=== PATIENT | female | born 1960 | race Caucasian/White ===

== ENCOUNTER 2021-04-30 11:00 | Day surgery (SDC) | payer BC, OTHER ==
[2021-04-28 15:43] VITALS: BMI 24.9
[2021-04-30] MEDS ORDERED: PROPOFOL 20 ML ONE ×2 (12:40)
[2021-04-30] MEDS ORDERED: LIDOCAINE HCL/PF 2% SDV 5ML VIAL ONE (12:40)
[2021-04-30 13:26] VITALS: PULSE 63; TEMP 97.8
[2021-04-30 15:12] VITALS: BP 110/71
== END 2021-04-30 14:10 | disposition home or self-care (01) ==
LOC: FASU-ENDO 11:00
PROVIDERS: ATTEND Internal Medicine Gastroenterology
PROC: 0DBN8ZX Excision of Sigmoid Colon, Via Natural or Artificial Opening Endoscopic, Diagnostic (ICD-10-PCS; principal; 2021-04-30 12:51)
DX: Z12.11 Encounter for screening for malignant neoplasm of colon (principal); Z80.0 Family history of malignant neoplasm of digestive organs; K64.1 Second degree hemorrhoids

== ENCOUNTER 2021-06-04 10:30 | Day surgery (SDC) | payer BC ==
[2021-05-28 16:42] VITALS: BMI 24.9
[2021-06-04] MEDS ORDERED: LIDOCAINE HCL/PF 2% SDV 5ML VIAL ONE (10:40)
[2021-06-04] MEDS ORDERED: PROPOFOL 20 ML ONE ×2 (10:41)
[2021-06-04] MEDS ORDERED: GLYCOPYRROLATE 0.2 MG/1 ML VIAL ONE (10:43)
[2021-06-04 12:11] VITALS: TEMP 97.8
[2021-06-04 12:53] VITALS: BP 138/74; PULSE 71
== END 2021-06-04 12:45 | disposition home or self-care (01) ==
LOC: FASU-ENDO 10:30
PROVIDERS: ATTEND Internal Medicine Gastroenterology
PROC: 0DB68ZX Excision of Stomach, Via Natural or Artificial Opening Endoscopic, Diagnostic (ICD-10-PCS; 2021-06-04)
PROC: 0DB48ZX Excision of Esophagogastric Junction, Via Natural or Artificial Opening Endoscopic, Diagnostic (ICD-10-PCS; 2021-06-04)
PROC: 0DB98ZX Excision of Duodenum, Via Natural or Artificial Opening Endoscopic, Diagnostic (ICD-10-PCS; principal; 2021-06-04 11:48)
DX: K29.50 Unspecified chronic gastritis without bleeding (principal); R10.13 Epigastric pain

== ENCOUNTER 2024-03-08 09:24 | Day surgery (SDC) | payer BC ==
[2024-02-29 11:46] VITALS: BMI 22.1
[2024-03-08 09:47] VITALS: RESP 18
[2024-03-08 11:37] VITALS: TEMP 97.7
[2024-03-08 12:02] VITALS: BP 108/57; PULSE 66
== END 2024-03-08 12:00 | disposition home or self-care (01) ==
LOC: FASU-ENDO 09:24
PROVIDERS: ATTEND Internal Medicine Gastroenterology
PROC: 0DBN8ZX Excision of Sigmoid Colon, Via Natural or Artificial Opening Endoscopic, Diagnostic (ICD-10-PCS; 2024-03-08)
PROC: 0DBP8ZX Excision of Rectum, Via Natural or Artificial Opening Endoscopic, Diagnostic (ICD-10-PCS; 2024-03-08)
PROC: 0DBM8ZX Excision of Descending Colon, Via Natural or Artificial Opening Endoscopic, Diagnostic (ICD-10-PCS; principal; 2024-03-08 11:06)
DX: Z12.11 Encounter for screening for malignant neoplasm of colon (principal); D12.4 Benign neoplasm of descending colon; K63.5 Polyp of colon; K57.30 Diverticulosis of large intestine without perforation or abscess without bleeding; K64.1 Second degree hemorrhoids; Z86.010 Personal history of colon polyps
CPT/HCPCS: 88305-TC

== ENCOUNTER 2024-04-19 10:52 | Day surgery (SDC) | payer BC ==
[2024-04-10 15:29] VITALS: BMI 22.4
[2024-04-19 11:16] VITALS: RESP 18
[2024-04-19 12:18] VITALS: TEMP 97
[2024-04-19 12:28] VITALS: PULSE 74
[2024-04-19 12:30] VITALS: BP 119/67
== END 2024-04-19 12:49 | disposition home or self-care (01) ==
LOC: FASU-ENDO 10:52
PROVIDERS: ATTEND Internal Medicine Gastroenterology
PROC: 0DB68ZX Excision of Stomach, Via Natural or Artificial Opening Endoscopic, Diagnostic (ICD-10-PCS; 2024-04-19)
PROC: 0DB48ZX Excision of Esophagogastric Junction, Via Natural or Artificial Opening Endoscopic, Diagnostic (ICD-10-PCS; 2024-04-19)
PROC: 0DB98ZX Excision of Duodenum, Via Natural or Artificial Opening Endoscopic, Diagnostic (ICD-10-PCS; principal; 2024-04-19 11:56)
DX: K21.00 Gastro-esophageal reflux disease with esophagitis, without bleeding (principal); K31.9 Disease of stomach and duodenum, unspecified; R10.13 Epigastric pain
CPT/HCPCS: 88305-TC; 88342-TC